=== PATIENT | female | born 2000 | race African-American/Black ===

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

== ENCOUNTER 2020-02-10 21:25 | Emergency (ER) | payer OTHER, BC ==
--- NOTE | 2020-02-10 22:50 | RAD ---
EXAM: 3 views of the left ankle HISTORY: Ankle pain COMPARISON: None FINDINGS: 3 views of the left ankle shows no evidence of acute fracture or dislocation. Mild medial s oft tissue swelling is seen. No degenerative changes are present. IMPRESSION: No evidence of acute osseous abnormality.
--- NOTE | 2020-02-10 22:51 | RAD ---
EXAM: 4 views of the left knee HISTORY: Knee pain after fall COMPARISON: 04/26/2015 FINDINGS: No knee effusion is seen. The patient is status post ACL repair. There is no evidence of ac kassandra fracture or dislocation. No significant degenerative changes are seen. No soft tissue swelling is present. IMPRESSION: No evidence of acute osseous abnormality.
[2020-02-10] MEDS ORDERED: Ibuprofen 200 MG TAB ONE (23:09)
== END 2020-02-10 23:25 | disposition home or self-care (01) ==
LOC: NAV ERS 21:25
DX: S93.402A Sprain of unspecified ligament of left ankle, initial encounter (principal); S80.02XA Contusion of left knee, initial encounter; Y93.02 Activity, running; J45.909 Unspecified asthma, uncomplicated; W18.30XA Fall on same level, unspecified, initial encounter